=== PATIENT | female | born 1940 | race Caucasian/White ===

== ENCOUNTER 2017-04-20 12:38 | Inpatient (IN) | payer MEDICARE, BC ==
--- NOTE | ~2017-04-20 | CR151 ---
[facility] A Service of [facility] & [facility] RADIOLOGY TEXT RESULTS PATIENT: ZAINAB AYON LOCATION: [facility] 453-01 : 39 UNIT #: [id number] AGE: [address]: Matt Camejo MD SEX: F ORDER DR: [id number] [facility] [address] [facility]. [place], [place] [address] [id number] I MR#: [id number] Acc #: [id number] NAME: ZAINAB AYON : 1940 SEX: F STUDY DATE/TIME: 04/21/2017 14:02 UNIT: [facility] ROOM: [facility] STUDY DESCRIPTION: CR Hip Min 2 Views Rt Attending Physician: Matt Camejo M.D. Ordering Physician: Suma Harris M.D. Primary Care Physician: Lee Christensen M.D. MEDICAL IMAGING REPORT This report is preliminary unless electronic signature is present EXAM C-arm fluoroscopy with 2 permanent images of the right hip, 04/21/17. HISTORY Right hip fracture, Gamma nail placement in OR. FINDINGS C-arm fluoroscopy was provided for use in the operating room. Two spot film radiographs of the right hip were obtained in the anterior and lateral projections documenting placement of a Gamma nail across the right hip fracture. The bones appear in anatomic alignment. 2 minutes 18 seconds of fluoroscopy time was utilized. Dictated by... Xavier Li M.D. THIS IS AN ELECTRONICALLY VERIFIED REPORT Xavier Li M.D. at 04/22/2017 1:46 PM Ankita TD: 04/21/2017 16:52 JOB #: [id number] MEDICAL IMAGING REPORT Page 1 of 1 COPY
--- NOTE | ~2017-04-20 | HP ---
Unit #: [id number] #: [id number] Patient: ZAINAB AYON [id number] [address] [place], [place] [address] [id number] I MR#: [id number] NAME: ZAINAB AYON. ROOM: 15527 Age: 77 Sex: F Admission Date: 04/20/2017 : 1940 Attending Physician: Linda Parra M.D. Primary Care Physician: Lee Christensen M.D. HISTORY AND PHYSICAL CHIEF COMPLAINT Status post fall. HISTORY OF PRESENT ILLNESS The patient is a 77-year-old female with a history of hypertension, COPD, chronic low back pain, presented to the emergency room status post fall. The patient was watering plants and tripped and fell and injured the right thigh. The patient had an x-ray of the right hip that showed the comminuted intertrochanteric fracture. The patient is being admitted for the above reasons; denies any fever, chills, nausea or vomiting, chest pain or shortness of breath. PAST MEDICAL HISTORY History of chronic low back pain, peptic ulcer disease, hypertension, and history of a CVA 40 years ago, hyperlipidemia. PAST SURGICAL HISTORY Back surgery x2, cataract extraction, hysterectomy, extensive left ankle/foot surgery. ALLERGIES Sulfa, Dilaudid and morphine. HOME MEDICATIONS Patient is on Celexa, trazodone, Klonopin, Remeron, Tylenol, calcium, fexofenadine, Prilosec, Acyclovir, Breo, Centrum. FAMILY HISTORY Positive for congestive heart failure. SOCIAL HISTORY The patient lives with her . She smokes one pack per day of tobacco and does not drink alcohol. REVIEW OF SYMPTOMS Fourteen-point review of symptoms performed and only pertinent positive findings as described above, remaining are negative. PHYSICAL EXAMINATION GENERAL APPEARANCE: On examination the patient is lying on a bed not in acute distress. HEENT: Head atraumatic/normocephalic. Pupils equal, round and reacting to light and accommodation. Extraocular movements are intact. Moist Unit #: [id number] #: [id number] Patient: ZAINAB AYON mucous membranes. NECK: Supple. LUNGS: Decreased air entry at the bases. HEART: Regular rate and rhythm. ABDOMEN: Soft, positive bowel sounds. EXTREMITIES: Patient is having pain in the right hip. NEUROLOGIC: Awake, alert and oriented. No gross focal motor deficit. DIAGNOSTIC STUDIES LABORATORY DATA: WBC 7.5, hemoglobin 12, hematocrit 36.3, platelet is 409, sodium 135, potassium 4.4, chloride 102, bicarb 26, glucose 121, BUN 14, creatinine 0.6, calcium is 8.9. ASSESSMENT 1. Right hip fracture. 2. Status post fall. 3. History of a hypertension. PLAN Plan to admit the patient as inpatient; will have the Ortho consult for the open reduction and internal fixation. Continue with the pain control with (1) and check the UA and EKG for the preop clearance and further recommendations will follow. Dictated by Crow Lloyd/mitra TD: 04/20/2017 17:31 JOB #: [id number] HISTORY AND PHYSICAL Page 1 of 1 X LINDA PARRA MD X HISTORY AND PHYSICAL
--- NOTE | ~2017-04-20 | CR151 ---
[facility] A Service of [facility] & [facility] RADIOLOGY TEXT RESULTS PATIENT: ZAINAB AYON LOCATION: [facility] 453-01 : 39 UNIT #: [id number] AGE: [address]: Matt Camejo MD SEX: F ORDER DR: [id number] [facility] [address] [facility]. [place], [place] [address] [id number] E MR#: [id number] Acc #: [id number] NAME: ZAINAB AYON : 1940 SEX: F STUDY DATE/TIME: 04/20/2017 14:12 UNIT: [facility] ROOM: STUDY DESCRIPTION: CR Hip Min 2 Views Rt Attending Physician: Ethan Lyons M.D. Ordering Physician: Ethan Lyons M.D. Primary Care Physician: Lee Christensen M.D. MEDICAL IMAGING REPORT This report is preliminary unless electronic signature is present EXAM AP pelvis and right hip. HISTORY Fell in garden at home. Pain. FINDINGS An AP view of the pelvis and oblique view of the right hip were obtained. The study shows an intertrochanteric comminuted right hip fracture with angulation. The pelvis is otherwise unremarkable, left hip is normal. CONCLUSION Comminuted angulated intertrochanteric right hip fracture. Dictated by... Kenneth Thrasher M.D. THIS IS AN ELECTRONICALLY VERIFIED REPORT Kenneth Thrasher M.D. at 04/22/2017 7:14 AM SHIRA/allison TD: 04/20/2017 15:55 JOB #: [id number] MEDICAL IMAGING REPORT Page 1 of 1 COPY
--- NOTE | ~2017-04-20 | OR ---
Unit #: [id number] #: [id number] Patient: ZAINAB AYON [id number] [address] [place], [place] [address] [id number] I MR#: [id number] NAME: ZAINAB AYON ROOM: [facility] Date of Procedure: 04/21/2017 Admission Date: 04/20/2017 Surgeon: Suma Harris M.D. : 1940 Attending Physician: Matt Camejo M.D. Primary Care Physician: Lee Christensen M.D. OPERATIVE REPORT PREOPERATIVE DIAGNOSIS Right hip intertrochanteric fracture. POSTOPERATIVE DIAGNOSIS Right hip intertrochanteric fracture. PROCEDURE PERFORMED Right hip Gamma Nail (90343). ASSISTANTS Crow Reyna and Crow Koenig ANESTHESIA General. INDICATIONS FOR SURGERY The patient is a 77-year-old female, who fell yesterday sustaining a three-part right hip intertrochanteric fracture. She is, therefore, admitted for internal fixation with a Gamma Nail. DESCRIPTION OF PROCEDURE The patient was taken to the operating room and placed in supine position and general anesthetic was induced. She was placed onto the fracture table. The right hip was identified as the correct operative location during the time-out procedure. The IV antibiotic protocol was followed. The right hip was then reduced under longitudinal traction. AP and lateral C-arm fluoroscopic views documented satisfactory reduction. The right hip was then prepped and draped in usual sterile fashion. A 2-cm incision was made two fingerbreadths superior to the tip of the greater trochanter. The Yuki Gamma Nail System was utilized for internal fixation. The cannulated awl was placed in the tip of the greater trochanter and advanced into the proximal femur under C-arm fluoroscopic control. The guide pin was placed, the one-step reamer was placed, a short 125 degree angled Gamma Nail was then placed over the guide pin. The outrigger drill guide was then used to place a compression screw in a center-center position in the femoral neck and head. The locking screw was then placed through the superior portion of the nail and then backed off one-quarter turn. Using the outrigger drill guide, a static locking screw was placed through the distal portion of the nail. AP and lateral C-arm fluoroscopic views documented satisfactory reduction of the hip fracture in satisfactory implant position. All wounds were Unit #: [id number] #: [id number] Patient: ZAINAB AYON copiously irrigated. Deep tissues were closed with 2-0 Vicryl. Skin was closed with skin thai. Xeroform gauze, dressing, sponges were taped into place. The patient was then transported to the recovery room in stable condition. ESTIMATED BLOOD LOSS Minimal. COMPLICATIONS None. SPECIMENS None. TOURNIQUET TIME Zero. Dictated by.Crow Mccarthy/yee TD: 04/22/2017 01:40 JOB #: [id number] OPERATIVE REPORT Page 1 of 1 X Myra Harris MD X PROCEDURE OPERATIVE NOTE
--- NOTE | ~2017-04-20 | DS ---
Unit #: [id number] #: [id number] Patient: ZAINAB AYON [id number] [address] [place], [place] [address] [id number] I MR#: [id number] NAME: ZAINAB AYON ROOM: 462 Age: 77 Sex: F Admission Date: 04/20/2017 : 1940 Discharge Date: 04/23/2017 Attending Physician: Matt Camejo M.D. Primary Care Physician: Lee Christensen M.D. DISCHARGE SUMMARY DIAGNOSIS ON ADMISSION Right hip intertrochanteric fracture. DIAGNOSES ON DISCHARGE 1. Right hip intertrochanteric fracture status post right hip gamma nailing. 2. Chronic low back pain. 3. Peptic ulcer disease. 4. Hypertension. 5. Hyperlipidemia. 6. Continued tobacco abuse. 7. History of cerebrovascular accident. 8. Acute Klebsiella urinary tract infection. CONSULTATIONS Dr. Harris in orthopedic consultation. DIAGNOSTIC STUDIES LABS: The patient's creatinine is 0.4, sodium 140, potassium was 3.7. WBC is 8.7, hemoglobin is 7.6, platelet count was 306. Urine culture revealed Klebsiella pneumonia greater than 100,000. HOSPITAL COURSE This 77-year-old female was admitted to [facility] with right hip fracture. Details are as per admission H and P. The patient was seen by orthopedics and underwent gamma nail placement and has tolerated surgery well. Anemia secondary to acute blood loss. We will start the patient on iron sulfate. Acute Klebsiella UTI. The patient is on antibiotic. PHYSICAL EXAMINATION GENERAL: Today, the patient is comfortable, is not in any acute distress. VITAL SIGNS: Vital signs reveal temperature of 98.2, pulse 75 per minute, respiratory rate 18 per minute and blood pressure 137/60. HEENT: Examination revealed no conjunctival congestion. Sclera is nonicteric. NECK: Neck is supple. Trachea is central. RESPIRATORY: Examination revealed decreased breath sounds bilaterally. There are no wheezes or crackles. HEART: Regular rate and rhythm. S1, S2. ABDOMEN: Abdomen is soft, nontender. Bowel sounds are present in all 4 Unit #: [id number] #: [id number] Patient: ZAINAB AYON quadrants. NEUROLOGIC: The patient is alert to person, place and time. Power is 5/5 bilaterally. Sensations are grossly intact. SKIN: Skin is warm and dry. RECOMMENDATIONS ON DISCHARGE 1. Disposition is to rehab. 2. Kindly repeat the patient's hemoglobin q.a.m. for the next 2 days as recommended by orthopedics. 3. Please make note the patient is weightbearing as tolerated on the right lower extremity with crutches. 4. The patient was encouraged to quit smoking. DISCHARGE MEDICATIONS 1. Tylenol 650 mg p.o. q.6 hours p.r.n. 2. Xarelto 10 mg p.o. daily for DVT prophylaxis. 3. Celexa 20 mg p.o. daily. 4. Trazodone 20 mg p.o. q.h.s. 5. [place] 180 mg p.o. daily p.r.n. 6. Acyclovir daily p.r.n. 7. Nicotine patch 21 mg per hour 1 patch daily. 8. Klonopin 1 mg p.o. t.i.d. p.r.n., which is the patient's home dose. 9. Colace 100 mg p.o. b.i.d. 10. Breo Ellipta 1 inhalation daily. 11. Milk of Magnesia p.r.n. 12. Multivitamin 1 tablet p.o. daily. 13. Percocet 1-2 pills p.o. q.4 hours p.r.n. pain. 14. Prilosec 40 mg p.o. daily. 15. Tums 500 mg p.o. daily. 16. Omnicef 300 mg p.o. b.i.d. for 5 days. 17. Floranex 1 capsule p.o. b.i.d. for 5 days as probiotic. FOLLOW-UP 1. The patient should follow up with Dr. Harris, as recommended, in 2 weeks. 2. The patient is advised to call primary care physician and go to ER if her condition changes. 1. Dictated byCrow Aguirre TD: 04/23/2017 12:44 JOB #: [id number] DISCHARGE SUMMARY Page 1 of 1 X Matt Camejo MD DISCHARGE SUMMARY
--- NOTE | ~2017-04-20 | CR107 ---
[facility] A Service of [facility] & [facility] RADIOLOGY TEXT RESULTS PATIENT: ZAINAB AYON LOCATION: [facility] 453- : 39 UNIT #: [id number] AGE: [address]: Matt Camejo MD SEX: F ORDER DR: [id number] [facility] [address] [facility] [place], [place] [address] [id number] MR#: [id number] Acc #: [id number] NAME: ZAINAB AYON : 1940 SEX: F STUDY DATE/TIME: 04/20/2017 14:13 UNIT: [facility] ROOM: STUDY DESCRIPTION: CR Femur 2 Views Rt Attending Physician: Ethan Lyons M.D. Ordering Physician: Ethan Lyons M.D. Primary Care Physician: Lee Christensen M.D. MEDICAL IMAGING REPORT This report is preliminary unless electronic signature is present EXAM Right femur. HISTORY Fell in Garden immediately prior to admission. TECHNIQUE 3 views are submitted. FINDINGS The comminuted intertrochanteric right hip fracture is again seen. There is generalized osteopenia. No acute fractures are seen in the shaft. Patient does have an old fracture of the proximal fibula. CONCLUSION 1. Intertrochanteric right hip fracture. 2. Old right fibular fracture. Dictated by... Kenneth Thrasher M.D. THIS IS AN ELECTRONICALLY VERIFIED REPORT Kenneth Thrasher M.D. at 04/22/2017 7:14 AM SHIRA/archie TD: 04/20/2017 15:54 JOB #: [id number] MEDICAL IMAGING REPORT Page 1 of 1 COPY
--- NOTE | ~2017-04-20 | EKG ---
PATIENT: ZAINAB AYON UNIT #: [id number] Ventricular Rate: 94 BPM Atrial Rate: 94 BPM P-R Interval: 120 ms QRS Duration: 76 ms Q-T Interval: 380 ms QTC Calculation(Bezet): 475 ms P [place]: 67 degrees Calculated R [place]: 20 degrees Calculated T [place]: 33 degrees Diagnosis Line: Diagnosis Line: Normal sinus rhythm Diagnosis Line: Possible Left atrial enlargement Diagnosis Line: Low voltage QRS Diagnosis Line: Borderline ECG Diagnosis Line: No previous ECGs available Diagnosis Line: Confirmed by BLAS WOODS MD ([id number]) on 04/21/2017 Diagnosis Line: 7:36:46 AM INTERPRETING MD: CHUCK BILLINGS
--- NOTE | ~2017-04-20 | A ---
[facility] Nutrition Therapy DATE: 04/21/17 Patient: ZAINAB AYON Physician: OSMAR Address: [address] Room/Bed: [address] [place] [address], Zip: [place] [address] Admit Date: 04/20/17 Date of : 39 Height: 5 0 Weight: 83 38 NUTRITIONAL ASSESSMENT: REASON: Low BMI 77 yo female admitted for fall, possible right hip fracture PMH: HTN, COPD, chronic back pain, PUD, CVA (40 year ago), HLD, bowel resection (per pt's family) Anthropometrics: Ht: 60" Wt: 38.2 kg BMI: 16.4 IBW: 45.5 kg, 84% IBW Labs: Craet 0.4 Meds: Protonix, NaCl, therapeutic formula, Tums I/O & Bowel function: 0/200, last BM 04/20 Skin Integrity: Surgical scars left leg/ abdomen/ backs Edema: none noted Estimated Nutrition Needs: Increased due to low body weight Diet: NPO Assessment: Chart reviewed, events noted. 77 yo female admitted for fall and right hip fracture. Pt is currently [place] for surgery. Pt has been NPO pre-op. RD spoke with the pt's daughter at bedside, who reports that the pt has lost weight lately, ~9# according to the pt. Apparently the pt has never been a "big eater". Pt's daughter reports that this is the pt's third day without anything to eat. RD stressed the importance of adequate nutritional intake, encouraging family to relay this to the pt. Pt's daughter agreed. RD suggested nutritional supplements, and the pt's daughter thinks she will like Magic Cup once her diet advances. RN believes the pt's diet will advance following surgery. Please see recommendations below. Dx: Unplanned weight loss RT decreased appetite AEB pt's family reported that the pt has had ~9# weight loss recently, BMI 16.4, 84% IBW. Intervention: 1. Advance to regular diet with 6 small meals once medically feasible 2. Magic Cup vanilla TID once diet advances Monitoring, Evaluation and Goals: [facility] Nutrition Therapy DATE: 04/21/17 Patient: ZAINAB AYON Physician: OSMAR Address: [address] Room/Bed: [address] [place] [address], Zip: [place] [address] Admit Date: 04/20/17 Date of : [birth year] Height: 5 0 Weight: 83 38 1. Oral intake; monitor for diet advancement, consume >50% of meals once able to take PO 2. Skin; promote healing of surgical site 3. Weight; promote weight gain towards healthy BMI range Recommendations: 1. Once medically feasible, advance the pt to a high calorie/ high protein diet + 6 small meals. 2. Please order vanilla Magic Cup TID for supplemental nutrition once the pt's diet advances. 3. Please obtain accurate weights for monitoring purposes. Pt is at moderate nutritional risk. RD will follow up per protocol. Respectfully, LETHA HURLEY RD, LD [employer] [facility] cc: client file
[~2017-04-20 12:38] MED LIST: ALLEGRA PO; AMBIEN PO; ATARAX PO; ATIVAN PO; BACLOFEN10 MG PO; BONIVA150 MG PO; CALAN PO; CELEXA20 MG PO; CEPHADYN PO; D3 PO; DURAGESIC TOP; FAMOTIDINE PO; FERRO-TIME325 MG PO; HCTZ PO; HYDROCODONE-A1 UDTA3 PO; HYDROCODONE-APA1 T41 PO; KCL PO; KLONOPIN1 MG PO; LOPRESSOR PO; LORTAB 10/500 T1 TAB PO; MENEST PO; MEVACOR PO; NAPROSYN500 MG PO; NEURONTIN PO; NORCO 10/325 TA1 TAB PO; OTC IRON SUPPLEMENT PO; OXYCONTIN PO; PERCOCET10 PO; PREMARIN PO; STAHIST AD TAB1 EACH PO; SUPER B COMPLEX1 CAP PO; TRAZODONE PO; VIT B-12 PO; ZORVOLEX35 MG PO; ZYPREXA2.5 MG PO
[2017-04-20] MEDS ORDERED: REMERON PO (13:19)
[2017-04-20] MEDS ORDERED: ACETAMINOPHEN PO (13:20)
[2017-04-20] MEDS ORDERED: CALCIUM PO (13:21)
[2017-04-20] MEDS ORDERED: ALLEGRA ALLERG180 MG PO (13:22)
[2017-04-20] MEDS ORDERED: PRILOSEC PO (13:22)
[2017-04-20] MEDS ORDERED: BREO ELLIPTA I1 EACH PO (13:23)
[2017-04-20] MEDS ORDERED: CENTRUM SILVER PO (13:23)
[2017-04-20] MEDS ORDERED: ACYCLOVIR400 MG PO (13:23)
[2017-04-20 14:15] LABS: BASOPHIL% 0.5 % (0-2.5); EOSINOPHIL% 0.5 % (0.0-7.0); HEMATOCRIT 36.3 % (35.0-45.0); LYMPHOCYTE# 1.3 X10e3 (1.0-3.5); LYMPHOCYTE% 16.8 % (17.0-45.0); MEAN CELL VOLUME 106.7 FL (83-96); MEAN CORPUSCULAR HEMOGLOBIN 35.3 PG (28-34); MEAN PLATELET VOLUME 7.1 FL (6.5-11.5); MONOCYTE# 0.6 X10e3 (0-1.0); MONOCYTE% 8.5 % (3.0-12.0); NEUTROPHIL# 5.5 X10e3 (1.5-7.1); NEUTROPHIL% 73.7 % (40-75); PLATELET COUNT 409 X10e3 (140-420); RED BLOOD COUNT 3.41 X10e (3.90-5.30); WHITE BLOOD COUNT 7.5 X10e3 (4.0-10.5)
[2017-04-20 14:16] LABS: DIFF IND YES
[2017-04-20 15:03] LABS: PLATELET ESTIMATE NORMAL (NORMAL); POIKILOCYTOSIS MOD
[2017-04-20 15:16] LABS: BUN/CREATININE RATIO 23.33; CALCIUM SERUM 8.9 mg/dL (8.4-10.2); CREATININE SERUM 0.6 mg/dL (0.6-1.4); GLOM FILT RATE Estimated 87.3 mL/min (>60); POTASSIUM 4.4 mmol/L (3.5-5.1)
[2017-04-20 17:08] LABS: URINE APPEARANCE CLEAR; URINE BILIRUBIN NEG (NEG); URINE BLOOD NEG (NEG); URINE COLOR YELLOW; URINE GLUCOSE NEG (NEG); URINE KETONE TRACE (NEG); URINE LEUKOCYTE ESTERASE TRACE (NEG); URINE NITRATE POS (NEG); URINE PROTEIN NEG (NEG); URINE SPECIFIC GRAVITY 1.017 (1.003-1.035); URINE UROBILINOGEN 0.2 MG/DL (NEG)
[2017-04-20 17:10] LABS: URBCS1 AUWI 0-2 /[HPF] (0-2); URINE BACTERIA AUWI 4+ (NEGATIVE); URINE SQUAMOUS EPITHELIAL CELL NONE SEEN /[HPF]; UWBCS1 AUWI 0-2 (0-5)
[2017-04-21 04:29] LABS: CALCIUM SERUM 8.5 mg/dL (8.4-10.2); CREATININE SERUM 0.4 mg/dL (0.6-1.4); GLOM FILT RATE Estimated 99.8 mL/min (>60); POTASSIUM 3.9 mmol/L (3.5-5.1)
[2017-04-21 04:33] LABS: HEMATOCRIT 36.3 % (35.0-45.0); HEMOGLOBIN 11.9 gm/dL (12.0-16.0); MEAN CELL VOLUME 106.8 FL (83-96); MEAN CORPUSCULAR HEMOGLOBIN 35.1 PG (28-34); MEAN CORPUSCULAR HGB CONC 32.8 g/dL (30-36); MEAN PLATELET VOLUME 7.3 FL (6.5-11.5); RED BLOOD COUNT 3.4 X10e (3.90-5.30); WHITE BLOOD COUNT 8.8 X10e3 (4.0-10.5)
[2017-04-22 03:35] LABS: HEMATOCRIT 25.6 % (35.0-45.0); MEAN CELL VOLUME 106.6 FL (83-96); MEAN CORPUSCULAR HEMOGLOBIN 34.9 PG (28-34); MEAN CORPUSCULAR HGB CONC 32.7 g/dL (30-36); MEAN PLATELET VOLUME 7.2 FL (6.5-11.5); RED BLOOD COUNT 2.4 X10e (3.90-5.30); WHITE BLOOD COUNT 7.2 X10e3 (4.0-10.5)
[2017-04-22 03:44] LABS: HEMOGLOBIN 8.4 gm/dL (12.0-16.0)
[2017-04-22 03:51] LABS: CALCIUM SERUM 7.6 mg/dL (8.4-10.2); CREATININE SERUM 0.4 mg/dL (0.6-1.4); GLOM FILT RATE Estimated 99.8 mL/min (>60); MAGNESIUM 1.6 mg/dL (1.6-3.0); POTASSIUM 3.7 mmol/L (3.5-5.1)
[2017-04-23 01:56] LABS: BASOPHIL% 0.4 % (0-2.5); EOSINOPHIL# 0.1 X10e3 (0-0.7); EOSINOPHIL% 0.8 % (0.0-7.0); HEMATOCRIT 23.2 % (35.0-45.0); HEMOGLOBIN 7.6 gm/dL (12.0-16.0); LYMPHOCYTE# 1.4 X10e3 (1.0-3.5); LYMPHOCYTE% 16.3 % (17.0-45.0); MEAN CELL VOLUME 106.9 FL (83-96); MEAN CORPUSCULAR HEMOGLOBIN 35.1 PG (28-34); MEAN CORPUSCULAR HGB CONC 32.8 g/dL (30-36); MEAN PLATELET VOLUME 7.3 FL (6.5-11.5); MONOCYTE# 1.1 X10e3 (0-1.0); MONOCYTE% 12.7 % (3.0-12.0); NEUTROPHIL# 6.1 X10e3 (1.5-7.1); NEUTROPHIL% 69.8 % (40-75); PLATELET COUNT 306 X10e3 (140-420); RED BLOOD COUNT 2.17 X10e (3.90-5.30); RED CELL DISTRIBUTION WIDTH 11.7 % (11.0-15.5); WHITE BLOOD COUNT 8.7 X10e3 (4.0-10.5)
[2017-04-23 01:57] LABS: DIFF IND YES
[2017-04-23 02:21] LABS: HYPOCHROMIA SL; PLATELET ESTIMATE NORMAL (NORMAL)
== END 2017-04-23 15:27 | DRG 481 ==
LOC: CED 12:38 → CEDOF 15:42 → C4B 15:42 → CEDOF 16:19 → CED 16:19 → CEDOF 04-21 03:38 → C3A PCU 04-21 03:38 → C4B 04-21 17:01 → C4C 04-22 16:44 → EDBD 04-23 15:27
PROVIDERS: Emergency Medicine; Internal Medicine; Nurse Practitioner; Orthopaedic Surgery
PROC: 0QS604Z Reposition Right Upper Femur with Internal Fixation Device, Open Approach (ICD-10-PCS; principal; 2017-04-21 12:30)
DX: S72.141A Displaced intertrochanteric fracture of right femur, initial encounter for closed fracture (principal); N39.0 Urinary tract infection, site not specified; B96.1 Klebsiella pneumoniae [K. pneumoniae] as the cause of diseases classified elsewhere; I10 Essential (primary) hypertension; D62 Acute posthemorrhagic anemia; W01.0XXA Fall on same level from slipping, tripping and stumbling without subsequent striking against object, initial encounter; M54.5 Low back pain; G89.29 Other chronic pain; E78.5 Hyperlipidemia, unspecified; F17.210 Nicotine dependence, cigarettes, uncomplicated; Z71.6 Tobacco abuse counseling; Z86.73 Personal history of transient ischemic attack (TIA), and cerebral infarction without residual deficits; Z98.49 Cataract extraction status, unspecified eye; Z90.710 Acquired absence of both cervix and uterus; Z88.5 Allergy status to narcotic agent; Z88.2 Allergy status to sulfonamides
CPT/HCPCS: 36415; 73502; 73552; 76000; 80048; 81003; 83735; 85025; 85027; 86850; 86900; 86901; 86923; 87086; 87088; 87186; 93005; 94760; 97110; 97116; 97161; 97530; 99285; C1713; G8978-GP; G8979-GP; J0131; J0690; J0696; J1885; J2175; J2250; J2370; J2405; J2550; J3010